=== PATIENT | female | born 1950 | race Caucasian/White ===

== ENCOUNTER → 2020-03-22 | Outpatient (CLI) | payer OTHER | LOC: SJCVC 09:31 | PROVIDERS: ATTEND Internal Medicine Cardiovascular Disease | DX: I48.21 Permanent atrial fibrillation (principal); R94.31 Abnormal electrocardiogram [ECG] [EKG]; I45.10 Unspecified right bundle-branch block; I10 Essential (primary) hypertension; Z79.899 Other long term (current) drug therapy ==

== ENCOUNTER → 2020-04-01 | Outpatient (CLI) | payer OTHER ==
[~2020-04-01] MED LIST: ASA81BEC PO; FISH OIL 1,001000 M3 PO; FUROSEMIDE 40 M40 MG PO; KLOR-CON M2020 MEQ PO; LEVO-T50 MCG PO; LIPITOR 20 MG T20 M1 PO; METFORMIN HCL500 MG PO; METOPROLOL SUCC50 MG PO; MULTI VITAMIN1 EACH PO; VITAMIN B-121000 MC2 DISSOLVE; VITAMIN D21250 MC1 PO; WARFARIN SODIUM5 MG PO
== END ==
LOC: LAB 03-28 08:55
PROVIDERS: ATTEND Internal Medicine Cardiovascular Disease
DX: Z01.812 Encounter for preprocedural laboratory examination (principal); Z20.828 Contact with and (suspected) exposure to other viral communicable diseases

== ENCOUNTER 2020-04-06 06:38 | Outpatient (CLI) | payer OTHER ==
[~2020-04-06] VITALS: Ht 170.2 cm; Wt 129.3 kg
[2020-04-06 07:34] VITALS: BP 134/59
[2020-04-06 07:40] LABS: ABSOLUTE NEUTROPHILS 7.6 thou/uL (1.4-8.2); BASOPHILS 0.4 % (0.0-2.0); EOSINOPHILS 0.4 % (0.0-3.0); HEMATOCRIT 39.6 % (37.0-47.0); HEMOGLOBIN 12.8 gm/dL (12.0-15.0); LYMPHOCYTES 24.3 % (24.0-44.0); MCHC 32.4 g/dL (28.0-37.0); MCV 86.2 fL (80.0-100.0); MONOCYTES 6.6 % (1.0-8.0); PLATELET COUNT 236 thou/uL (150-400); POLYS 68.3 % (36.0-66.0); RBC 4.59 mil/uL (4.20-5.00); RDW 14.7 % (10.5-14.5); WBC 11.1 thou/uL (4.0-11.0)
[2020-04-06 07:44] LABS: CALCIUM 9.7 mg/dL (8.5-10.1); CREATININE 0.7 mg/dL (0.6-1.0); POTASSIUM 3.4 mmol/L (3.5-5.1)
[2020-04-06] MEDS ORDERED: ASA81BEC PO ×2 (07:44)
[2020-04-06] MEDS ORDERED: LIPITOR 20 MG T20 M1 PO ×2 (07:45)
[2020-04-06] MEDS ORDERED: VITAMIN B-121000 MC2 DISSOLVE ×2 (07:46)
[2020-04-06] MEDS ORDERED: FISH OIL 1,001000 M3 PO ×2 (07:48)
[2020-04-06] MEDS ORDERED: VITAMIN D21250 MC1 PO ×2 (07:48)
[2020-04-06 07:49] LABS: ALBUMIN 3.8 g/dL (3.4-5.0); TOTAL BILIRUBIN 0.5 mg/dL (0.2-1.0); TOTAL PROTEIN 8.2 g/dL (6.4-8.2)
[2020-04-06] MEDS ORDERED: FUROSEMIDE 40 M40 MG PO ×2 (07:49)
[2020-04-06] MEDS ORDERED: LEVO-T50 MCG PO ×2 (07:50)
[2020-04-06] MEDS ORDERED: METFORMIN HCL500 MG PO ×2 (07:51)
[2020-04-06] MEDS ORDERED: MULTI VITAMIN1 EACH PO ×2 (07:52)
[2020-04-06] MEDS ORDERED: KLOR-CON M2020 MEQ PO ×2 (07:54)
[2020-04-06] MEDS ORDERED: WARFARIN SODIUM5 MG PO ×2 (07:55)
[2020-04-06 07:56] LABS: PROTIME 10.4 Seconds (9.3-11.4)
[2020-04-06 15:25] VITALS: BP 178/71
--- NOTE | 2020-04-06 17:50 | NUR ---
PT TO THE UNIT POST PACEMAKER INSERTION - RHYTHM V PACED. ASSESSMENT CHARTED - PT ORIENTED TO ROOM AND BEDSPACE. KELLEY DIET AND FLUIDS. NO CO'S OF PAIN OR NAUSEA. BP AT FIRST ELEVATED POST PROCEDURE ON ARRIVAL TO FLOOR. DID FALL TO 128 SYS WHICH PATIENT STATED WAS NORMAL FOR HER. VSS IN CHART. ACCUCHECCK CHARTED - COVERED PER SSI ORDERED. NO CO'S AT THE PRESENT TIME. IMMOBILIZER INSITU. STATED COMFROTABLE AT PRESENT.
[2020-04-06 20:18] VITALS: BP 190/72
[2020-04-06 23:27] VITALS: BP 157/63
[2020-04-07 04:00] VITALS: BP 147/64
--- NOTE | 2020-04-07 04:26 | NUR ---
SLEPT MOST OF SHIFT. ASSISTED UP TO BATHROOM WITH STANDBY ASSIST. LEFT ARM IMMOBILIZER REMAINS IN PLACE. DENIES COMPLAINTS OF PAIN IN LEFT SHOULDER NEEDING PAIN MEDICATION. TELEMETRY SHOWS VPACED RATE 60. WORKING ON GOALS AND PLAN OF CARE FOR NOC. PROGRESSING TOWARDS DISCHARGE GOALS SLOWLEY. CONTINUE TO ASSES CLOSELY.
[2020-04-07 07:10] VITALS: BP 147/60
[2020-04-07] MEDS ORDERED: METOPROLOL SUCC50 MG PO ×2 (07:29)
[2020-04-07 10:17] VITALS: BP 147/60
--- NOTE | 2020-04-07 12:22 | NUR ---
ASSESSMENT CHARTED - MEDS PER MAR- UP AD LACHELLE IN ROOM - KELLEY DIET AND FLUIDS. NO CO'S OF PAIN OR NAUSEA. INCISION D/C/I. PT HOME THIS AM INSTRUCTION RE HOME MEDS/ CARE AND FOLLOW GIVEN TO PATIENT. STATED UNDERSTANDING OF INSTRUCTION GIVEN. PT LEFT UNIT VIA WHEELCHAIR - HOME VIA PVT VEHICLE ACCOMPANIED BY . NO CO'S AT TIME OF D/C.
--- NOTE | 2020-04-15 14:48 | P ---
[facility] [place] [address] PROCEDURE REPORT Name: LU ZEPEDA Room #: DEP MEAGAN Cano#: [id number] Admission: 04/06/20 Attend Phys: Humza Brown MD Discharge: 04/07/20 Date of : 50 Report #: [id number] THIS REPORT FOR: cc: Keith Arita,Keith Peace,Humza Henry MD ~ CC: Keith Brown PREOPERATIVE DIAGNOSES: 1. Atrial fibrillation. 2. Symptomatic bradycardia. POSTOPERATIVE DIAGNOSES: 1. Atrial fibrillation. 2. Symptomatic bradycardia. PROCEDURES PERFORMED: Single chamber pacemaker implantation. HISTORY: The patient is a 69-year-old female with a history of permanent atrial fibrillation and symptomatic bradycardia, likely due to advanced AV chadwick disease. She is here for pacemaker implantation. ANESTHESIA: The patient underwent MAC anesthesia with no anesthesia related complications. DESCRIPTION OF PROCEDURE: The patient underwent informed consent. We discussed the details and risks of the procedure. She is willing to proceed. The patient was brought to EP laboratory in a fasting and sedated state, prepped and draped in a sterile fashion, underwent venogram and received IV antibiotics. Next, I injected lidocaine at the incision site. A pocket was created and access was obtained x 1 with the sheath positioned using the modified Seldinger technique. Next, under fluoroscopy, a lead was placed in the right ventricular apex with adequate pacing and sensing thresholds. The lead was sutured to the prepectoral fascia, connected to the device pocket, irrigated with vancomycin. Pocket closed in 2 layers and surgical glue was placed to outer skin layer. The patient awoke neurologically and hemodynamically intact. No complications and no significant bleeding. The implanted pacemaker was a Medtronic, [place] serial #[id number]. RV lead was a 5076, 58 cm, serial #[id number] with a R-wave of 5 millivolts, pacing impedance 532 ohms, pacing threshold 0.5 volts at 0.5 milliseconds. The device was programmed to the VVIR 60-130 mode. [facility] [address] [address] PROCEDURE REPORT Name: LU ZEPEDA [facility]: [id number] Admission: 04/06/20 Attend Phys: Humza Brown MD Discharge: 04/07/20 Date of : 50 Report #: [id number] CONCLUSIONS: Successful VVI pacemaker implantation. <ELECTRONICALLY SIGNED> By: Humza Brown MD 04/15/20 [id number] Humza Brown MD /nt
== END 2020-04-07 10:56 | disposition home or self-care (01) ==
LOC: CATH 06:38 → 2N 15:37 → CATH 04-07 10:56
PROVIDERS: ATTEND Internal Medicine Cardiovascular Disease
DX: I48.21 Permanent atrial fibrillation (principal); I44.30 Unspecified atrioventricular block; I11.0 Hypertensive heart disease with heart failure; I50.33 Acute on chronic diastolic (congestive) heart failure; E11.9 Type 2 diabetes mellitus without complications; E78.5 Hyperlipidemia, unspecified; E03.9 Hypothyroidism, unspecified; Z90.49 Acquired absence of other specified parts of digestive tract; Z98.890 Other specified postprocedural states; Z79.899 Other long term (current) drug therapy; Z82.49 Family history of ischemic heart disease and other diseases of the circulatory system; Z79.82 Long term (current) use of aspirin; Z79.84 Long term (current) use of oral hypoglycemic drugs; Z98.51 Tubal ligation status
CPT/HCPCS: 10081; 62110; 62900; 70005

== ENCOUNTER → 2020-07-05 | Outpatient (CLI) | payer OTHER | LOC: SJCVC 13:55 | PROVIDERS: ATTEND Internal Medicine Cardiovascular Disease | DX: I48.20 Chronic atrial fibrillation, unspecified (principal); R94.31 Abnormal electrocardiogram [ECG] [EKG]; I45.10 Unspecified right bundle-branch block; I11.0 Hypertensive heart disease with heart failure; I50.32 Chronic diastolic (congestive) heart failure; E11.9 Type 2 diabetes mellitus without complications; Z95.0 Presence of cardiac pacemaker; Z79.82 Long term (current) use of aspirin; Z79.899 Other long term (current) drug therapy ==